=== PATIENT | female | born 1935 | race Caucasian/White ===

== ENCOUNTER 2017-09-21 21:33 | Emergency (ER) | payer MEDICARE ==
[~2017-09-21] VITALS: Ht 152.4 cm; Wt 50.0 kg
[2017-09-21] MEDS ORDERED: METO50 PO (21:55)
[2017-09-21] MEDS ORDERED: LORA0.5T2 PO (21:55)
[2017-09-21] MEDS ORDERED: NITR50 PO (21:55)
[2017-09-21] MEDS ORDERED: LEVO25TA9 PO (21:55)
[2017-09-21] MEDS ORDERED: PHOSLOC PO (21:55)
[2017-09-21] MEDS ORDERED: MEMA5 PO (21:55)
[2017-09-21] MEDS ORDERED: OMEP20 PO (21:55)
[2017-09-21] MEDS ORDERED: WARF3TAB29 PO (21:55)
[2017-09-21] MEDS ORDERED: LIDOCAINE-PRILOCAINE TP (21:55)
[2017-09-21 23:51] LABS: BASOPHILS % (AUTO) 0.8 % (0.0-2.0); EOSINOPHILS % (AUTO) 2.5 % (1.0-6.0); HEMATOCRIT 30.9 % (36-46); HEMOGLOBIN 10.6 g/dL (12.0-16.0); LYMPHOCYTES # (AUTO) 1.7 K/uL (1.0-4.8); LYMPHOCYTES % (AUTO) 30.3 % (22.0-44.0); MEAN CORPUSCULAR HEMOGLOBIN 31.3 pg (26.0-34.0); MEAN CORPUSCULAR HGB CONC 34.2 G/dL (31.0-37.0); MEAN CORPUSCULAR VOLUME 92 fL (80-100); MONOCYTES # (AUTO) 0.6 K/uL (0.1-1.0); MONOCYTES % (AUTO) 10.2 % (2.0-9.0); NEUTROPHILS # (AUTO) 3.2 K/uL (1.8-7.7); NEUTROPHILS % (AUTO) 56.2 % (40.0-70.0); RED BLOOD CELL COUNT(AUTO) 3.38 MIL/uL (4.00-5.20)
[2017-09-21 23:56] LABS: CALCIUM, TOTAL 8.5 mg/dL (8.8-10.5); CREATININE 1.96 mg/dL (0.60-1.30); INR 1.3 (0.9-1.1); POTASSIUM 3.7 mmol/L (3.5-5.1); PROTHROMBIN TIME 13.2 SEC (9.4-11.6)
[2017-09-22 00:01] LABS: ALBUMIN 3.3 g/dL (3.4-5.0); BILIRUBIN,TOTAL 0.4 mg/dL (0.1-1.0); TOTAL PROTEIN, SERUM 6.8 g/dL (6.4-8.2)
[2017-09-22 00:18] LABS: PLATELET COUNT (AUTO) 60 K/uL (150-450)
[2017-09-22 00:42] VITALS: BP 100/68
== END 2017-09-22 01:03 | disposition home or self-care (01) ==
LOC: EMS 21:34
DX: T82.838A Hemorrhage due to vascular prosthetic devices, implants and grafts, initial encounter (principal); D64.9 Anemia, unspecified; I13.2 Hypertensive heart and chronic kidney disease with heart failure and with stage 5 chronic kidney disease, or end stage renal disease; N18.6 End stage renal disease; I50.9 Heart failure, unspecified; R79.1 Abnormal coagulation profile; I48.91 Unspecified atrial fibrillation; E03.9 Hypothyroidism, unspecified; Z99.2 Dependence on renal dialysis; Z95.1 Presence of aortocoronary bypass graft; Z95.0 Presence of cardiac pacemaker; Z88.8 Allergy status to other drugs, medicaments and biological substances
CPT/HCPCS: 99285